=== PATIENT | male | born 1990 | race African-American/Black ===

== ENCOUNTER 2016-07-11 16:05 | Emergency (ER) | payer SELFPAY ==
[~2016-07-11] VITALS: Ht 188 cm; Wt 116.1 kg
[2016-07-11 20:04] VITALS: BP 141/93
== END 2016-07-11 20:04 | disposition home or self-care (01) ==
LOC: ED 16:05
DX: R10.9 Unspecified abdominal pain (principal); J45.909 Unspecified asthma, uncomplicated; Z88.6 Allergy status to analgesic agent